=== PATIENT | female | born 1970 | race Hispanic/Latino ===

== ENCOUNTER 2019-02-02 13:16 | Emergency (ER) | payer MEDICARE, OTHER ==
[~2019-02-02] VITALS: Ht 154.9 cm; Wt 65.8 kg
--- OUTSIDE RECORDS SUMMARY | 2019-02-02 13:19 | XMS REPORT | Continuity of Care Document ---
Author Author [facility] Address Unknown Phone Unavailable Care Team Providers Care Concrete Pourer Name Role Phone Voice Assist Information [email or web address] Unavailable Unavailable Problems Problem Status Onset Date Classification Date Reported Comments Source ABD PAIN Active 01/09/2012 [facility] Medications Medication Details Route Status Patient Instructions Ordering Provider Order Date Source tramadol 50 mg oral tablet 50 mg, PO, Q4-6H, PRN, 20 tab, Pain, Substitution Allowed PO Active Egnar 01/09/2012 [facility] Phenergan 25 mg oral tablet 25 mg, 1 tab, PO, Q4H, PRN, 15 tab, Nausea, Substitution Allowed PO Active Egnar 01/09/2012 [facility] Zofran 4 mg, 2 mL, Route: IVP, Drug form: INJ, ONCE, Priority: STAT, Start date: 01/09/12 14:07:00, Stop date: 01/09/12 14:07:00 IVP No Longer Active Dimple 01/09/2012 [facility] morphine Sulfate 2 mg, 1 mL, Route: IVP, Drug form: INJ, ONCE, Priority: STAT, Start date: 01/09/12 14:07:00, Stop date: 01/09/12 14:07:00 IVP No Longer Active Dimple 01/09/2012 [facility] Allergies, Adverse Reactions, Alerts No Known Medication Allergies Immunizations No Data Provided for This Section Results Order Name Results Value Reference Range Date Interpretation Comments Source CHEMISTRY U Preg Negative (01/09/2012 15:18:00) Negative 01/09/2012 Normal [facility] URINALYSIS UA Urobilinogen 0.1 - 1.0 01/09/2012 [facility] URINALYSIS UA Color Ltyellow 01/09/2012 [facility] URINALYSIS UA Mucus Few /LPF *NA* (01/09/2012 15:18:00) None Seen 01/09/2012 [facility] URINALYSIS UA Bacteria Occasional /HPF *NA* (01/09/2012 15:18:00) None Seen 01/09/2012 [facility] URINALYSIS UA Turbidity Slight *ABN* (01/09/2012 15:18:00) Clear 01/09/2012 [facility] URINALYSIS UA Spec Grav 1.010 <=1.030 01/09/2012 [facility] URINALYSIS UA pH 6.0 5.0 - 8.0 01/09/2012 [facility] URINALYSIS UA Glucose Negative mg/dL *NA* (01/09/2012 15:18:00) Negative 01/09/2012 [facility] URINALYSIS UA Protein Negative mg/dL (01/09/2012 15:18:00) Negative 01/09/2012 [facility] URINALYSIS UA Sq Epi Moderate /LPF *ABN* (01/09/2012 15:18:00) Few 01/09/2012 [facility] URINALYSIS UA Leuk Est Negative (01/09/2012 15:18:00) Negative 01/09/2012 [facility] URINALYSIS UA RBC 2 0 - 2 01/09/2012 [facility] URINALYSIS UA WBC 1 0 - 5 01/09/2012 [facility] URINALYSIS UA Bili Negative *NA* (01/09/2012 15:18:00) Negative 01/09/2012 [facility] URINALYSIS UA Ketones 20 mg/dL *ABN* (01/09/2012 15:18:00) Negative 01/09/2012 [facility] URINALYSIS UA Nitrite Negative (01/09/2012 15:18:00) Negative 01/09/2012 [facility] URINALYSIS UA Blood Small *ABN* (01/09/2012 15:18:00) Negative 01/09/2012 [facility] CHEMISTRY Lipase Lvl 109 73 - 393 01/09/2012 [facility] CHEMISTRY Amylase Lvl 40 25 - 115 01/09/2012 [facility] CHEMISTRY A/G Ratio 1.0 0.7 - 1.6 01/09/2012 [facility] CHEMISTRY B/C Ratio 16 6 - 25 01/09/2012 [facility] CHEMISTRY Globulin 4.0 2.0 - 4.0 01/09/2012 [facility] CHEMISTRY AGAP 11.7 10.0 - 20.0 01/09/2012 [facility] CHEMISTRY Alk Phos 59 39 - 136 01/09/2012 [facility] CHEMISTRY BUN 13 7 - 22 01/09/2012 Normal [facility] CHEMISTRY Total Protein 7.8 6.4 - 8.4 01/09/2012 Normal [facility] CHEMISTRY ALT 30 0 - 65 01/09/2012 Normal [facility] CHEMISTRY Bili Total 0.4 0.2 - 1.3 01/09/2012 Normal [facility] CHEMISTRY AST 12 0 - 37 01/09/2012 Normal [facility] CHEMISTRY Glucose Lvl 87 70 - 99 01/09/2012 Normal <sup>1</sup>Interpretive Data: Adult reference range values reflect the clinical guidelines of the [place] [employer]. [facility] CHEMISTRY Creatinine Lvl 0.8 0.5 - 1.4 01/09/2012 Normal [facility] CHEMISTRY Albumin Lvl 3.8 3.5 - 5.0 01/09/2012 Normal [facility] CHEMISTRY Calcium Lvl 8.4 8.5 - 10.5 01/09/2012 [facility] CHEMISTRY CO2 28 24 - 32 01/09/2012 Normal [facility] CHEMISTRY Chloride Lvl 102 95 - 109 01/09/2012 Normal [facility] CHEMISTRY Potassium Lvl 3.7 3.5 - 5.1 01/09/2012 Normal [facility] CHEMISTRY Sodium Lvl 138 135 - 145 01/09/2012 Normal [facility] HEMATOLOGY Basophils # 0.0 0.0 - 0.2 01/09/2012 Normal [facility] HEMATOLOGY Lymphocytes # 1.7 1.0 - 5.5 01/09/2012 Normal [facility] HEMATOLOGY Monocytes # 0.6 0.0 - 0.8 01/09/2012 Normal [facility] HEMATOLOGY Eosinophils # 0.0 0.0 - 0.5 01/09/2012 Normal [facility] HEMATOLOGY Basophils 0.3 0.0 - 1.0 01/09/2012 Normal [facility] HEMATOLOGY Segs-Bands # 3.7 1.5 - 8.1 01/09/2012 Normal [facility] HEMATOLOGY Monocytes 9.6 2.0 - 12.0 01/09/2012 Normal [facility] HEMATOLOGY Lymphocytes 28.0 20.0 - 40.0 01/09/2012 Normal [facility] HEMATOLOGY Eosinophils 0.1 0.0 - 4.0 01/09/2012 Normal [facility] HEMATOLOGY Segs 62.0 45.0 - 75.0 01/09/2012 Normal [facility] HEMATOLOGY Platelet 280 133 - 450 01/09/2012 Normal [facility] HEMATOLOGY MPV 8.5 7.4 - 10.4 01/09/2012 Normal [facility] HEMATOLOGY RBC 4.52 4.20 - 5.40 01/09/2012 Normal [facility] HEMATOLOGY RDW 14.0 11.5 - 14.5 01/09/2012 Normal [facility] HEMATOLOGY WBC 5.9 3.7 - 10.4 01/09/2012 Normal [facility] HEMATOLOGY MCH 30.1 27.0 - 31.0 01/09/2012 Normal [facility] HEMATOLOGY MCHC 33.8 32.0 - 36.0 01/09/2012 Normal [facility] HEMATOLOGY MCV 89.0 81.0 - 99.0 01/09/2012 Normal [facility] HEMATOLOGY Hct 40.3 36.0 - 48.0 01/09/2012 Normal [facility] HEMATOLOGY Hgb 13.6 12.0 - 16.0 01/09/2012 Normal [facility] Pathology Reports No Data Provided for This Section Diagnostic Reports No Data Provided for This Section Consultation Notes No Data Provided for This Section Discharge Summaries No Data Provided for This Section History and Physicals No Data Provided for This Section Vital Signs Vital Sign Value Date Comments Source Weight 54.545 01/09/2012 [facility] Height 160.02 cm 01/09/2012 [facility] Encounters Location Location Details Encounter Type Encounter Number Reason For Visit Attending Provider ADM Date DC Date Status Source [facility] Emergency [id number] LEONIDES EDDIE 01/09/2012 01/09/2012 Discharged [facility] Procedures No Data Provided for This Section Assessment and Plan No Data Provided for This Section Plan of Care No Data Provided for This Section Social History No Data Provided for This Section Family History No Data Provided for This Section Advance Directives No Data Provided for This Section Functional Status No Data Provided for This Section
--- OUTSIDE RECORDS SUMMARY | 2019-02-02 13:20 | XMS REPORT | Summary of Care ---
Author Author Shira Camargo M.A. Unknown Address Unknown Phone Unavailable Care Team Providers Care Granite Countertop Installer Name Role Phone ADAIR BOYD M.D. Unavailable Unavailable KETTY HAYES M.D. Unavailable Unavailable LINDA LIZAMA MD, [facility] [place] Unavailable Unavailable Unavailable Unavailable Functional Status Name Dates Details Functional status health issues are not documented Status: Name Dates Details Cognitive status health issues are not documented Status: Problems Name Dates Details Elevated cholesterol (272.0, E78.00) Status: Active Frequent headaches (784.0, R51) Status: Active Encounter for routine gynecological examination with Papanicolaou smear of cervix (V72.31, Z01.419) Status: Active Dysmenorrhea (625.3, N94.6) Status: Active Visit for screening mammogram (V76.12, Z12.31) Status: Active Encounter for contraceptive management (V25.9, Z30.9) Status: Active Ovarian cyst (620.2, N83.209) Status: Active Secondary amenorrhea (626.0, N91.1) Status: Active Medications Name Dates Details NexIUM 40 MG Oral Capsule Delayed Release * Start : 08-Dec-2014 Active Simvastatin 20 MG Oral Tablet * Refills: 0 * Start : 08-Dec-2014 Active Pbyhtbrmtq-RQV-Vuprbmie 50-325-40 MG CAPS * Refills: 0 * Start : 08-Dec-2014 Active Norethindrone Acet-Ethinyl Est 1-20 MG-MCG Oral Tablet TAKE ONE TABLET BY MOUTH EVERY DAY FOR 21 DAYS THEN 7 TABLET FREE DAYS * Quantity: 21 Refills: 1 ADAIR BOYD M.D. * Start : 08-Dec-2014 Active Gildess 1.5/30 1.5-30 MG-MCG TABS TAKE 1 TABLET DAILY DIRECTED. 03-14-15 * Quantity: 21 Refills: 8 ADAIR BOYD M.D. * Start : 25-Nov-2015 Active Allergies and Adverse Reactions Name Dates Details No Known Drug Allergies (Allergy) Status: Active Past Medical History Name Dates Details History of esophageal reflux (V12.79, Z87.19) Status: Resolved History of hyperlipidemia (V12.29, Z86.39) Status: Resolved History of tension headache (V13.89, Z87.898) Status: Resolved Procedures Procedure Dates Details Procedures not documented Immunization Name Dates Details Immunizations not documented Social History Name Dates Details - Status: Name Dates Details Never smoker Never smoker Vital Signs Date Test Result Details No Known Vitals to report Results Date Description Value Details Results not documented Plan of Care Name Dates Details Planned Observations Planned Goals not documented Planned Encounters Appointment; KETTY HAYES M.D. On: 09-Jan-2019 15:00 Interventions Provided Plan* Follow up in Discussion/Summary* Reviewed and discussed clinical cardiac findings and medications. * EKG reviewed and discussed. Instructions Name Dates Details Instructions not documented Encounters Appointment; KETTY HAYES M.D. Encounter Diagnosis: Problem not documented On: 09-Jan-2019 15:00
--- OUTSIDE RECORDS SUMMARY | 2019-02-02 13:20 | XMS REPORT | CCD ---
Author Author Auto Generated Organization [facility] Address Unknown Phone Unavailable Care Team Providers Care Director Of Collections Name Role Phone Connor Arreaga CP Allergies, Adverse Reactions, Alerts Substance Reaction Status NKDA Active Medications Medication Instructions Start Date End Date Status tramadol 50 mg oral 50 mg, PO, Q4-6H, PRN, 20 tab, 01/09/2012 01/13/2012 Ordered tablet Pain, Substitution Allowed Phenergan 25 mg oral 25 mg, 1 tab, PO, Q4H, PRN, 15 tab, 01/09/2012 Ordered tablet Nausea, Substitution Allowed Zofran 4 mg, 2 mL, Route: IVP, Drug form: 01/09/2012 01/09/2012 Completed INJ, ONCE, Priority: STAT, Start date: 01/09/12 14:07:00, Stop date: 01/09/12 14:07:00 morphine Sulfate 2 mg, 1 mL, Route: IVP, Drug form: 01/09/2012 01/09/2012 Completed INJ, ONCE, Priority: STAT, Start date: 01/09/12 14:07:00, Stop date: 01/09/12 14:07:00 Vital Signs Most recent to oldest [Reference Range]: 1 Height 160.02 cm (01/09/2012 12:55:00) Weight 54.545 kg (01/09/2012 12:55:00) Results URINALYSIS Most recent to oldest [Reference Range]: 1 UA Turbidity [Clear] Slight *ABN* (01/09/2012 15:18:00) UA Color Ltyellow *NA* (01/09/2012 15:18:00) UA pH [5.0-8.0] 6.0 (01/09/2012 15:18:00) UA Spec Grav [<=1.030] 1.010 (01/09/2012 15:18:00) UA Glucose [Negative mg/dL] Negative mg/dL *NA* (01/09/2012 15:18:00) UA Blood [Negative] Small *ABN* (01/09/2012 15:18:00) UA Ketones [Negative mg/dL] 20 mg/dL *ABN* (01/09/2012 15:18:00) UA Protein [Negative mg/dL] Negative mg/dL (01/09/2012 15:18:00) UA Urobilinogen [0.1-1.0 mg/dL] <=1.0 mg/dL *NA* (01/09/2012 15:18:00) UA Bili [Negative] Negative *NA* (01/09/2012 15:18:00) UA Leuk Est [Negative] Negative (01/09/2012 15:18:00) UA Nitrite [Negative] Negative (01/09/2012 15:18:00) UA WBC [0-5 /HPF] 1 /HPF (01/09/2012 15:18:00) UA RBC [0-2 /HPF] 2 /HPF (01/09/2012 15:18:00) UA Bacteria [None Seen /HPF] Occasional /HPF *NA* (01/09/2012 15:18:00) UA Sq Epi [Few /LPF] Moderate /LPF *ABN* (01/09/2012 15:18:00) UA Mucus [None Seen /LPF] Few /LPF *NA* (01/09/2012 15:18:00) CHEMISTRY Most recent to oldest [Reference Range]: 1 Sodium Lvl [135-145 mEq/L] 138 mEq/L (01/09/2012 14:02:00) Potassium Lvl [3.5-5.1 mEq/L] 3.7 mEq/L (01/09/2012 14:02:00) Chloride Lvl [95-109 mEq/L] 102 mEq/L (01/09/2012 14:02:00) CO2 [24-32 mEq/L] 28 mEq/L (01/09/2012 14:02:00) AGAP [10.0-20.0 mEq/L] 11.7 mEq/L (01/09/2012 14:02:00) Creatinine Lvl [0.5-1.4 mg/dL] 0.8 mg/dL (01/09/2012 14:02:00) BUN [7-22 mg/dL] 13 mg/dL (01/09/2012 14:02:00) B/C Ratio [6-25] 16 (01/09/2012 14:02:00) Glucose Lvl [70-99 mg/dL] 87 mg/dL 1 (01/09/2012 14:02:00) Total Protein [6.4-8.4 g/dL] 7.8 g/dL (01/09/2012 14:02:00) Albumin Lvl [3.5-5.0 g/dL] 3.8 g/dL (01/09/2012 14:02:00) Globulin [2.0-4.0 g/dL] 4.0 g/dL (01/09/2012 14:02:00) A/G Ratio [0.7-1.6] 1.0 (01/09/2012 14:02:00) Calcium Lvl [8.5-10.5 mg/dL] 8.4 mg/dL *LOW* (01/09/2012 14:02:00) ALT [0-65 U/L] 30 U/L (01/09/2012 14:02:00) AST [0-37 U/L] 12 U/L (01/09/2012 14:02:00) Alk Phos [39-136 U/L] 59 U/L (01/09/2012 14:02:00) Bili Total [0.2-1.3 mg/dL] 0.4 mg/dL (01/09/2012 14:02:00) Amylase Lvl [25-115 U/L] 40 U/L (01/09/2012 14:02:00) Lipase Lvl [73-393 U/L] 109 U/L (01/09/2012 14:02:00) U Preg [Negative] Negative (01/09/2012 15:18:00) 1Interpretive Data: Adult reference range values reflect the clinical guidelinesof the [place] [employer]. HEMATOLOGY Most recent to oldest [Reference Range]: 1 WBC [3.7-10.4 K/CMM] 5.9 K/CMM (01/09/2012 14:02:00) RBC [4.20-5.40 M/CMM] 4.52 M/CMM (01/09/2012 14:02:00) Hgb [12.0-16.0 g/dL] 13.6 g/dL (01/09/2012 14:02:00) Hct [36.0-48.0 %] 40.3 % (01/09/2012:02:00) MCV [81.0-99.0 fL] 89.0 fL (01/09/2012:02:00) MCH [27.0-31.0 pg] 30.1 pg (01/09/2012:02:00) MCHC [32.0-36.0 g/dL] 33.8 g/dL (01/09/2012:02:00) RDW [11.5-14.5 %] 14.0 % (01/09/2012 14:02:00) Platelet [133-450 K/CMM] 280 K/CMM (01/09/2012:02:00) MPV [7.4-10.4 fL] 8.5 fL (01/09/2012 14:02:00) Segs [45.0-75.0 %] 62.0 % (01/09/2012:02:00) Lymphocytes [20.0-40.0 %] 28.0 % (01/09/2012:02:00) Monocytes [2.0-12.0 %] 9.6 % (01/09/2012 14:02:00) Eosinophils [0.0-4.0 %] 0.1 % (01/09/2012:02:00) Basophils [0.0-1.0 %] 0.3 % (01/09/2012:02:00) Segs-Bands # [1.5-8.1 K/CMM] 3.7 K/CMM (01/09/2012 14:02:00) Lymphocytes # [1.0-5.5 K/CMM] 1.7 K/CMM (01/09/2012 14:02:00) Monocytes # [0.0-0.8 K/CMM] 0.6 K/CMM (01/09/2012 14:02:00) Eosinophils # [0.0-0.5 K/CMM] 0.0 K/CMM (01/09/2012 14:02:00) Basophils # [0.0-0.2 K/CMM] 0.0 K/CMM (01/09/2012 14:02:00)
[2019-02-02 15:09] LABS: BASOPHILS % 0.2 % (0.0-1.0); EOSINOPHILS % 0.4 % (0.0-6.0); HEMATOCRIT 40.5 % (34.2-44.1); LYMPHOCYTES % 36.7 % (18.0-39.1); MEAN CORPUSCULAR HGB CONC 32.1 g/dL (31-35); MEAN CORPUSCULAR VOLUME 90.4 fL (81-99); MONOCYTES # (AUTO) 0.6 (0.2-0.8); MONOCYTES % 7.5 % (4.4-11.3); NEUTROPHILS # (AUTO) 4.6 (2.1-6.9); NEUTROPHILS % 55.1 % (38.7-80.0); PLATELET COUNT 286 x10e3/uL (140-360); RED BLOOD COUNT 4.48 x10e6/uL (3.6-5.1); RED CELL DISTRIBUTION WIDTH 13.5 % (11.7-14.4)
[2019-02-02 15:12] LABS: BILIRUBIN,URINE NEGATIVE (NEGATIVE); CLARITY,URINE CLEAR (CLEAR); COLOR,URINE YELLOW (YELLOW); KETONES,URINE NEGATIVE (NEGATIVE); LEUKOCYTE ESTERASE ,URINE NEGATIVE (NEGATIVE); NITRITE,URINE NEGATIVE (NEGATIVE); PROTEIN,URINE DIPSTICK NEGATIVE (NEGATIVE); URINE UROBILINOGEN 0.2 mg/dL (0.2 - 1)
[2019-02-02 15:16] LABS: PREGNANCY TEST, URINE NEGATIVE (NEGATIVE)
[2019-02-02 15:23] LABS: BACTERIA,URINE RARE /HPF; EPITHELIAL CELLS,URINE MODERATE /LPF; RBC,URINE 0-5 /HPF (0-5)
[2019-02-02 15:35] LABS: ALANINE AMINOTRANSFERASE 9 IU/L (0-55); ALBUMIN 3.8 g/dL (3.5-5.0); ALBUMIN/GLOBULIN RATIO 1.2 (0.8-2.0); ALKALINE PHOSPHATASE 70 IU/L (40-150); ANION GAP 10.6 mmol/L (8-16); BLOOD UREA NITROGEN 9 mg/dL (7-26); BUN/CREATININE RATIO 13 (6-25); CALCIUM 8.8 mg/dL (8.4-10.2); CARBON DIOXIDE 27 mmol/L (22-29); CHLORIDE 104 mmol/L (98-107); CREATININE, SERUM 0.69 mg/dL (0.57-1.11); EST GLOMERULAR FILTRATION RATE > 60 ML/MIN (60-); GLUCOSE 75 mg/dL (74-118); POTASSIUM 3.6 mmol/L (3.5-5.1); SODIUM 138 mmol/L (136-145)
[2019-02-02] MEDS ORDERED: SODIUM CHLORIDE 0.9% 1000ML 1,000 ML IV STA (16:20)
[2019-02-02] MEDS ORDERED: MORPHINE SULFATE INJ 4 MG/ML INJ 1ML IV STA (16:20)
[2019-02-02] MEDS ORDERED: ONDANSETRON HCL INJ 2MG/ML 2ML 2 MG/ML VIAL IV ONE (16:30)
[2019-02-02] MEDS ORDERED: FAMOTIDINE 20 MG/2 ML VIAL IV ONE (16:30)
[2019-02-02] MEDS ORDERED: TRAMADOL HCL 50 MG TAB PO ONE (16:30)
[2019-02-02] MEDS ORDERED: DIATRIZOATE MEGL/DIATRIZOA SOD 30 ML BTL PO ONE (16:55)
--- NOTE | 2019-02-02 19:02 | Diagnostic Imaging Report ---
EXAM: CT Abdomen and Pelvis WITH contrast INDICATION: Right-sided pain. Appendicitis. Diverticulitis. Small bowel obstruction. Pancreatitis. COMPARISON: None. TECHNIQUE: Abdomen and pelvis were scanned utilizing a multidetector helical scanner from the lung base to the pubic symphysis after administration of IV contrast. Coronal and sagittal reformations were obtained. Routine protocol was performed. Scan was performed when during portal venous phase. IV CONTRAST: 100 mL of Isovue-370 ORAL CONTRAST: Water COMPLICATIONS: None RADIATION DOSE: Total DLP: 266 mGy*cm Estimated effective dose: (DLP x 0.015 x size factor) mSv CTDIvol has been reviewed. It is below the limits set by the Radiation Protocol Committee (RPC). Dose modulation, iterative reconstruction, and/or weight based adjustment of the mA/kV was utilized to reduce the radiation dose to as low as reasonably achievable. FINDINGS: LINES and TUBES: None. LOWER THORAX: Unremarkable HEPATOBILIARY: No focal hepatic lesions. No biliary ductal dilation. GALLBLADDER: No radio-opaque stones or sludge. No wall thickening. SPLEEN: No splenomegaly. PANCREAS: No focal masses or ductal dilatation. ADRENALS: No adrenal nodules KIDNEYS/URETERS: Kidneys enhance symmetrically. No hydronephrosis. No cystic or solid mass lesions. No stones. GI TRACT: No abnormal distention, wall thickening, or evidence of bowel obstruction. Appendix is normal. Scattered diverticulosis without evidence of diverticulitis. PELVIC ORGANS/BLADDER: Septated left adnexal cyst. LYMPH NODES: No lymphadenopathy. VESSELS: Unremarkable. PERITONEUM / RETROPERITONEUM: No free air or fluid. BONES: Unremarkable. SOFT TISSUES: Unremarkable. IMPRESSION: 1. Scattered diverticulosis without evidence of diverticulitis. Signed by: Dr. Albert Kwong M.D. on 02/02/2019 6:58 PM
[2019-02-02] MEDS ORDERED: IOPAMIDOL 370 MG/ML 200 ML INFUS..BTL INJ ONE (19:56)
[2019-02-02] MEDS ORDERED: SODIUM CHLORIDE 0.9% 50ML 50 ML ONE (19:56)
[2019-02-02 20:59] VITALS: BP 146/85
== END 2019-02-02 21:31 | disposition home or self-care (01) ==
LOC: ER 13:16
DX: R10.31 Right lower quadrant pain (principal); K21.9 Gastro-esophageal reflux disease without esophagitis; E78.5 Hyperlipidemia, unspecified
CPT/HCPCS: 36415; 74177; 80053; 81001; 81025; 85025; 99284; J2405; J7030; Q9967; J2270

== ENCOUNTER 2021-12-11 16:01 | Emergency (ER) | payer MEDICARE, OTHER ==
[~2021-12-11] VITALS: Ht 154.9 cm; Wt 65.8 kg
[2021-12-11] MEDS ORDERED: ONDANSETRON HCL INJ 2MG/ML 2ML 2 MG/ML VIAL IV STA (17:55)
[2021-12-11] MEDS ORDERED: SODIUM CHLORIDE 0.9% 1000ML 1,000 ML IV STA (17:55)
[2021-12-11] MEDS ORDERED: DICYCLOMINE HCL 20 MG/2 ML VIAL IM ONE (18:00)
[2021-12-11 18:10] LABS: BASOPHILS % 0.3 % (0.0-1.0); EOSINOPHILS # (AUTO) 0.1 (0.0-0.4); EOSINOPHILS % 0.8 % (0.0-6.0); HEMATOCRIT 38.8 % (34.2-44.1); HEMOGLOBIN 12.5 g/dL (12.0-16.0); LYMPHOCYTES # (AUTO) 2.1 (1.0-3.2); LYMPHOCYTES % 31.7 % (18.0-39.1); MEAN CORPUSCULAR HEMOGLOBIN 29.5 pg (28-32); MEAN CORPUSCULAR HGB CONC 32.2 g/dL (31-35); MEAN CORPUSCULAR VOLUME 91.5 fL (81-99); MONOCYTES % 15.3 % (4.4-11.3); NEUTROPHILS # (AUTO) 3.4 (2.1-6.9); NEUTROPHILS % 51.7 % (38.7-80.0); PLATELET COUNT 286 x10e3/uL (140-360); RED BLOOD COUNT 4.24 x10e6/uL (3.6-5.1); RED CELL DISTRIBUTION WIDTH 13.1 % (11.7-14.4)
[2021-12-11 18:20] LABS: INR 0.95; PROTHROMBIN TIME 13.6 seconds (11.9-14.5)
[2021-12-11 18:20] LABS: CLARITY,URINE SL CLOUDY (CLEAR); COLOR,URINE YELLOW (YELLOW); KETONES,URINE NEGATIVE (NEGATIVE); LEUKOCYTE ESTERASE ,URINE NEGATIVE (NEGATIVE); NITRITE,URINE NEGATIVE (NEGATIVE); PROTEIN,URINE DIPSTICK NEGATIVE (NEGATIVE); URINE UROBILINOGEN 0.2 mg/dL (0.2 - 1)
[2021-12-11 18:30] LABS: ALANINE AMINOTRANSFERASE 12 IU/L (0-55); ALBUMIN 3.5 g/dL (3.5-5.0); ALBUMIN/GLOBULIN RATIO 0.9 (0.8-2.0); ALKALINE PHOSPHATASE 77 IU/L (40-150); ANION GAP 11.3 mmol/L (8-16); BLOOD UREA NITROGEN 11 mg/dL (7-26); BUN/CREATININE RATIO 15 (6-25); CALCIUM 8.3 mg/dL (8.4-10.2); CARBON DIOXIDE 25 mmol/L (22-29); CHLORIDE 106 mmol/L (98-107); CREATINE KINASE 51 IU/L (29-168); CREATININE, SERUM 0.71 mg/dL (0.57-1.11); EST GLOMERULAR FILTRATION RATE 87 ML/MIN (60-); GLUCOSE 92 mg/dL (74-118); POTASSIUM 3.3 mmol/L (3.5-5.1); SODIUM 139 mmol/L (136-145)
[2021-12-11 18:36] LABS: AMORPHOUS SEDIMENT,URINE MODERATE (FEW); BACTERIA,URINE MODERATE /HPF; EPITHELIAL CELLS,URINE MANY /LPF; MUCUS,URINE MODERATE (RARE); RBC,URINE 0-5 /HPF (0-5)
[2021-12-11] MEDS ORDERED: IOPAMIDOL 370 MG/ML 100 ML INFUS..BTL INJ ONE (19:00)
[2021-12-11] MEDS ORDERED: METRONIDAZOLE500 MG PO (20:32)
[2021-12-11] MEDS ORDERED: IBUPROFEN600 MG PO (20:32)
[2021-12-11] MEDS ORDERED: DICYCLOMINE HCL10 MG PO (20:37)
[2021-12-11 21:05] LABS: EOSINOPHILS % (MANUAL) 1 % (0-7); LYMPHOCYTES % (MANUAL) 22 % (19-48); MONOCYTES % (MANUAL) 16 % (3.4-9.0); NEUTROPHILS % (MANUAL) 55 % (40-74); PLATELET ESTIMATE ADEQUATE; PLATELET MORPHOLOGY COMMENT NORMAL; RBC MORPHOLOGY COMMENT NORMAL
== END 2021-12-11 20:35 | disposition home or self-care (01) ==
LOC: ER 17:09
DX: R10.13 Epigastric pain (principal); R10.30 Lower abdominal pain, unspecified; K52.9 Noninfective gastroenteritis and colitis, unspecified; E78.5 Hyperlipidemia, unspecified; K21.9 Gastro-esophageal reflux disease without esophagitis
CPT/HCPCS: 36415; 74177; 80053; 81001; 81025; 82550; 82553; 83690; 83880; 84484; 85025; 85610; 85730; 99284; C9113; J0500; J2405; J7030; Q9967